=== PATIENT | female | born 1955 | race African-American/Black ===

== ENCOUNTER 2017-09-08 21:29 | Observation (INO) | payer MEDICARE, MEDICAID ==
[~2017-09-08] VITALS: Ht 167.6 cm; Wt 94.8 kg
[~2017-09-08 21:29] MED LIST: BENA40TA3; FERR325T23; GABA-531 PO; METH500T6 PO; NIFEDIPINE; PROMETHAZINE; PSEU60TA95; TRAM50TA3 PO; [UNRECOGNIZED DRUG - REMARK]
[2017-09-08] MEDS ORDERED: ASPIRIN 81MG TABLET PO ONE (22:15)
[2017-09-08] MEDS: NITROGLYCERIN 0.4MG TABLET SL SL PRN ×2 (22:22→22:27)
[2017-09-08 22:47] LABS: BASOPHILS % 0.2 % (0.0-2.0); EOSINOPHILS % 1.5 % (0.0-5.0); HEMATOCRIT. 36.6 % (36.0-48.0); HEMOGLOBIN. 12.4 g/dL (12.0-16.0); LYMPHOCYTES % 44.4 % (20.0-50.0); MEAN CORPUSCULAR HEMOGLOBIN 29.6 pg (28.0-32.0); MEAN CORPUSCULAR VOLUME 87.5 fL (81.0-99.0); MEAN PLATELET VOLUME 8.1 fl (7.4-10.4); MONOCYTES % 8.5 % (2.0-8.0); NEUTROPHILS % 45.4 % (40.0-76.0); PLATELET 178 x1000/uL (130-400); RED BLOOD CELL COUNT 4.18 mill/uL (4.2-5.4); RED CELL DISTRIBUTION WIDTH 14.7 % (11.6-14.6)
[2017-09-08 22:50] LABS: PROTHROMBIN TIME 10.7 sec (9.4-11.6)
[2017-09-08 22:58] LABS: CARBON DIOXIDE 27 mEq/L (21-32); CHLORIDE 105 mEq/L (98-107); TROPONIN I < 0.02 ng/mL (0.00-0.04)
[2017-09-08 23:56] LABS: *AMPHETAMINES SCREEN URINE NEGATIVE (NEGATIVE); *BARBITURATES SCREEN URINE NEGATIVE (NEGATIVE); *BENZODIAZEPINES SCREEN URINE NEGATIVE (NEGATIVE); *COCAINE SCREEN URINE NEGATIVE (NEGATIVE); CANNABINOID URINE SCREEN NEGATIVE (NEGATIVE); METHADONE URINE SCREEN NEGATIVE (NEGATIVE); OPIATES URINE SCREEN NEGATIVE (NEGATIVE); PHENCYCLIDINE URINE SCREEN NEGATIVE (NEGATIVE)
[2017-09-09] VITALS (8 sets, daily range): BP systolic 118–157; BP diastolic 82–102
[2017-09-09] MEDS ORDERED: VARE1TAB21 PO (03:27)
[2017-09-09] MEDS ORDERED: TRAZ150T79 PO (03:27)
[2017-09-09] MEDS ORDERED: HYDR-519 PO (03:27)
[2017-09-09] MEDS ORDERED: ATOR40TA70 PO (03:27)
[2017-09-09] MEDS ORDERED: MAGNESIUM/ALUMINUM HYDROXIDE/SIMETHICONE 30ML UDC PO PRN (04:15)
[2017-09-09] MEDS ORDERED: ONDANSETRON HCL 4MG/2ML VIAL IV PRN (04:15)
[2017-09-09] MEDS ORDERED: ACETAMINOPHEN 325MG TABLET PO PRN (04:15)
[2017-09-09] MEDS ORDERED: DIPHENHYDRAMINE 50MG/ML VIAL IV PRN (04:15)
[2017-09-09] MEDS ORDERED: CLONIDINE 0.1MG TABLET PO PRN (04:15)
[2017-09-09] MEDS: SODIUM CHLORIDE 0.9% INJ 3ML FLUSH IVF SCH ×3 (05:18→20:26)
[2017-09-09] MEDS: GABAPENTIN 300MG CAPSULE PO SCH ×3 (05:18→21:36)
[2017-09-09] MEDS ORDERED: BENAZEPRIL 20MG TABLET PO SCH (09:00)
[2017-09-09] MEDS: HYDROCODONE/ACETAMINOPHEN 10/325MG TABLET PO PRN ×2 (10:09→20:23)
[2017-09-09] MEDS ORDERED: POTASSIUM CHLORIDE 20MEQ TABLET SR PO NR (15:15)
[2017-09-09] MEDS ORDERED: IOHEXOL-350 100 ML BOTTLE ONE (16:33)
[2017-09-09] MEDS ORDERED: REGADENOSON 0.4 MG/5 ML IV NR (17:15)
[2017-09-09] MEDS: LOSARTAN POTASSIUM 25 MG TABLET PO SCH (18:21)
[2017-09-09] MEDS ORDERED: LACTULOSE 20G/30ML UDC PO NR (20:15)
[2017-09-09] MEDS: ATORVASTATIN CALCIUM 40MG TABLET PO SCH (20:22)
[2017-09-09] MEDS: TRAZODONE HCL 100MG TABLET PO SCH (20:22)
[2017-09-09] MEDS: GUAIFENESIN 200MG/10ML SUGAR FREE UDC PO PRN (21:35)
[2017-09-10] VITALS: BP 98/59
[2017-09-10 04:00] VITALS: BP 98/65
[2017-09-10] MEDS: GABAPENTIN 300MG CAPSULE PO SCH ×3 (06:06→21:53)
[2017-09-10] MEDS: SODIUM CHLORIDE 0.9% INJ 3ML FLUSH IVF SCH ×3 (06:06→21:53)
[2017-09-10 08:16] LABS: CARBON DIOXIDE 27 mEq/L (21-32); CHLORIDE 109 mEq/L (98-107); HDL CHOLESTEROL 39 mg/dL (40-59); LDL CHOLESTEROL 101 mg/dL (5-100)
[2017-09-10] MEDS ORDERED: REGADENOSON 0.4 MG/5 ML IV ONE (08:23)
[2017-09-10 08:36] LABS: TROPONIN I < 0.02 ng/mL (0.00-0.04)
[2017-09-10] MEDS: LOSARTAN POTASSIUM 25 MG TABLET PO SCH ×2 (09:10→20:17)
[2017-09-10] MEDS: HYDROCODONE/ACETAMINOPHEN 10/325MG TABLET PO PRN ×2 (13:11→20:23)
[2017-09-10] MEDS: LACTULOSE 20G/30ML UDC PO PRN (13:41)
[2017-09-10] MEDS ORDERED: SODIUM CHLORIDE 0.9% 10ML VIAL ONE (13:57)
[2017-09-10 20:00] VITALS: BP 132/80
[2017-09-10] MEDS: GUAIFENESIN 200MG/10ML SUGAR FREE UDC PO PRN (20:17)
[2017-09-10] MEDS: ATORVASTATIN CALCIUM 40MG TABLET PO SCH (20:17)
[2017-09-10] MEDS: TRAZODONE HCL 100MG TABLET PO SCH (21:53)
[2017-09-10 22:00] VITALS: BP 92/64
[2017-09-11] VITALS: BP 92/64
[2017-09-11 04:00] VITALS: BP 107/62
[2017-09-11] MEDS: GABAPENTIN 300MG CAPSULE PO SCH ×2 (06:16→14:02)
[2017-09-11] MEDS: SODIUM CHLORIDE 0.9% INJ 3ML FLUSH IVF SCH ×2 (06:19→14:01)
[2017-09-11] MEDS: LOSARTAN POTASSIUM 25 MG TABLET PO SCH (08:36)
[2017-09-11] MEDS: HYDROCODONE/ACETAMINOPHEN 10/325MG TABLET PO PRN (08:40)
[2017-09-11] MEDS ORDERED: IOHEXOL-300 100 ML BOTTLE ONE (11:19)
[2017-09-11 12:00] VITALS: BP 119/78
[2017-09-11] MEDS: LACTULOSE 20G/30ML UDC PO PRN (14:02)
[2017-09-11] MEDS ORDERED: PREDNISONE 20MG TABLET PO SCH (16:15)
[2017-09-11 16:52] VITALS: BP 119/78
[2017-09-11] MEDS ORDERED: MAGNESIUM CITRATE 300ML SOLUTION PO SCH (18:00)
== END 2017-09-11 17:30 | disposition home or self-care (01) ==
LOC: ER 22:38 → INTOOBSV 09-09 00:24 → 5WST 09-09 00:24 → EDBEDREQ 09-09 00:30
PROVIDERS: ADMIT Internal Medicine; ATTEND Internal Medicine
DX: R07.89 Other chest pain (principal); J42 Unspecified chronic bronchitis; I24.9 Acute ischemic heart disease, unspecified; I11.9 Hypertensive heart disease without heart failure; R22.1 Localized swelling, mass and lump, neck; E78.00 Pure hypercholesterolemia, unspecified; J45.909 Unspecified asthma, uncomplicated; D50.9 Iron deficiency anemia, unspecified; G62.9 Polyneuropathy, unspecified; I71.2 Thoracic aortic aneurysm, without rupture; M19.90 Unspecified osteoarthritis, unspecified site; F17.210 Nicotine dependence, cigarettes, uncomplicated; Z79.899 Other long term (current) drug therapy; M46.92 Unspecified inflammatory spondylopathy, cervical region
CPT/HCPCS: 36415; 70491; 71010; 71275; 78452; 80053; 80061; 80305; 83735; 83880; 84443; 84484; 85025; 85379; 85610; 93005; 93017; 93306; 99285; A4216; A9500; G0378; J2785; J7512; Q9967

== ENCOUNTER 2019-11-27 15:16 | Inpatient (IN) | payer MEDICARE, MEDICAID ==
[~2019-11-27] VITALS: Ht 167.6 cm; Wt 89.4 kg
[~2019-11-27 15:16] MED LIST changes: +ATOR40TA70 PO; -BENA40TA3; +BENA40TA9; +HYDR-519 PO; +TRAZ150T79 PO; +VARE1TAB21 PO
[2019-11-27] MEDS ORDERED: ONDANSETRON HCL 4MG/2ML INJ IV STA (16:21)
[2019-11-27] MEDS ORDERED: MORPHINE SULFATE 4 MG/ML CPJ (NOT FOR IM USE) IV STA (16:21)
[2019-11-27] MEDS ORDERED: SODIUM CHLORIDE 0.9% 1000ML BAG (SEPSIS BOLUS) IV ONE (16:30)
[2019-11-27 16:58] LABS: BASOPHILS % 0.4 % (0.0-2.0); EOSINOPHILS % 0.1 % (0.0-5.0); HEMATOCRIT. 45.1 % (36.0-48.0); HEMOGLOBIN. 15.1 g/dL (12.0-16.0); MEAN CORPUSCULAR HEMOGLOBIN 30.7 pg (28.0-32.0); MEAN CORPUSCULAR VOLUME 91.9 fL (81.0-99.0); MONOCYTES % 5.7 % (2.0-8.0); NEUTROPHILS % 67.8 % (40.0-76.0); PLATELET 298 x1000/uL (130-400); RED CELL DISTRIBUTION WIDTH 15.1 % (11.6-14.6)
[2019-11-27 17:06] LABS: CHLORIDE 105 mEq/L (98-107)
[2019-11-27 17:07] LABS: PARTIAL THROMBOPLASTIN TIME 26.2 sec (23.4-31.0); PROTHROMBIN TIME 10.3 sec (9.6-11.0)
[2019-11-27] MEDS ORDERED: POTASSIUM CHLORIDE 20MEQ TABLET SR PO ONE (18:45)
[2019-11-27] MEDS ORDERED: MORPHINE SULFATE 4 MG/ML CPJ (NOT FOR IM USE) IV ONE (19:00)
[2019-11-27 19:05] LABS: CLARITY URINE CLEAR (CLEAR); COLOR URINE YELLOW (YELLOW); KETONES URINE NEGATIVE (NEGATIVE); LEUKOCYTE ESTERASE URINE NEGATIVE (NEGATIVE); NITRITE URINE NEGATIVE (NEGATIVE); OCCULT BLOOD URINE NEGATIVE (NEGATIVE); PH URINE 6.5 (4.5-8.0); PROTEIN URINE 1+ (NEGATIVE); SPECIFIC GRAVITY URINE 1.025 (1.005-1.030)
[2019-11-27 22:00] VITALS: BP 156/82
[2019-11-27] MEDS ORDERED: CLONIDINE 0.1MG TABLET PO PRN (22:45)
[2019-11-27] MEDS ORDERED: IPRATROPIUM/ALBUTEROL 0.5-3(2.5)MG/3ML NEB HHN PRN (22:45)
[2019-11-27] MEDS ORDERED: TRAZODONE HCL 50MG TABLET PO NR (23:00)
[2019-11-27] MEDS: HYDROMORPHONE HCL/PF 2MG/ML CPJ IV PRN (23:05)
[2019-11-28 00:07] VITALS: BP 154/82
[2019-11-28 02:00] VITALS: BP 148/90
[2019-11-28] MEDS: HYDROMORPHONE HCL/PF 2MG/ML CPJ IV PRN ×6 (03:01→20:30)
[2019-11-28 07:21] LABS: BASOPHILS % 0.3 % (0.0-2.0); EOSINOPHILS % 0.2 % (0.0-5.0); HEMATOCRIT. 40.7 % (36.0-48.0); HEMOGLOBIN. 13.1 g/dL (12.0-16.0); LYMPHOCYTES % 29.8 % (20.0-50.0); MEAN CORPUSCULAR VOLUME 93.2 fL (81.0-99.0); MEAN PLATELET VOLUME 8.6 fl (7.4-10.4); MONOCYTES % 7.4 % (2.0-8.0); NEUTROPHILS % 62.3 % (40.0-76.0); PLATELET 262 x1000/uL (130-400); RED BLOOD CELL COUNT 4.36 mill/uL (4.2-5.4)
[2019-11-28 08:00] VITALS: BP 149/83
[2019-11-28 08:32] LABS: CHLORIDE 110 mEq/L (98-107)
[2019-11-28 08:41] LABS: LDL CHOLESTEROL 109 mg/dL (5-100)
[2019-11-28 08:44] LABS: HDL CHOLESTEROL 54 mg/dL (40-59)
[2019-11-28] MEDS: AMLODIPINE 5MG TABLET PO SCH ×2 (09:13→20:29)
[2019-11-28 12:00] VITALS: BP 139/72
[2019-11-28] MEDS: DEXAMETHASONE 4MG/ML 1ML VIAL IV SCH ×3 (14:25→23:33)
[2019-11-28 16:00] VITALS: BP 146/88
[2019-11-28] MEDS ORDERED: HYDROCODONE/ACETAMINOPHEN 10/325MG TABLET PO PRN (16:45)
[2019-11-28 20:19] VITALS: BP 145/88
[2019-11-28] MEDS: TRAZODONE HCL 50MG TABLET PO SCH (20:29)
[2019-11-29] VITALS (7 sets, daily range): BP systolic 117–197; BP diastolic 72–103
[2019-11-29] MEDS: HYDROMORPHONE HCL/PF 2MG/ML CPJ IV PRN ×5 (00:51→20:26)
[2019-11-29] MEDS: DEXAMETHASONE 4MG/ML 1ML VIAL IV SCH ×3 (05:04→18:19)
[2019-11-29] MEDS: AMLODIPINE 5MG TABLET PO SCH ×2 (09:41→20:26)
[2019-11-29] MEDS: OXYCODONE HCL 5MG TABLET PO PRN (18:19)
[2019-11-29] MEDS: TRAZODONE HCL 50MG TABLET PO SCH (20:26)
[2019-11-30] VITALS: BP_SYST 150; BP_SYST 162; BP_DIAS 95; BP_DIAS 96
[2019-11-30] MEDS: DEXAMETHASONE 4MG/ML 1ML VIAL IV SCH ×5 (00:10→23:54)
[2019-11-30] MEDS: OXYCODONE HCL 5MG TABLET PO PRN ×3 (00:11→15:13)
[2019-11-30] MEDS: HYDROMORPHONE HCL/PF 2MG/ML CPJ IV PRN ×5 (01:01→22:37)
[2019-11-30 04:00] VITALS: BP 144/90
[2019-11-30 05:15] LABS: BASOPHILS % 0.2 % (0.0-2.0); HEMATOCRIT. 41.6 % (36.0-48.0); HEMOGLOBIN. 13.8 g/dL (12.0-16.0); LYMPHOCYTES % 11.2 % (20.0-50.0); MEAN CORPUSCULAR HEMOGLOBIN 30.5 pg (28.0-32.0); MEAN CORPUSCULAR VOLUME 91.8 fL (81.0-99.0); MEAN PLATELET VOLUME 8.7 fl (7.4-10.4); MONOCYTES % 1.1 % (2.0-8.0); NEUTROPHILS % 87.5 % (40.0-76.0); PLATELET 268 x1000/uL (130-400); RED BLOOD CELL COUNT 4.53 mill/uL (4.2-5.4); RED CELL DISTRIBUTION WIDTH 15.1 % (11.6-14.6)
[2019-11-30 06:37] LABS: CHLORIDE 105 mEq/L (98-107)
[2019-11-30 08:00] VITALS: BP 131/79
[2019-11-30] MEDS: AMLODIPINE 5MG TABLET PO SCH ×2 (08:29→21:51)
[2019-11-30 12:00] VITALS: BP 139/80
[2019-11-30] MEDS ORDERED: LACTULOSE 20G/30ML UDC PO PRN (15:00)
[2019-11-30] MEDS ORDERED: GUAIFENESIN 200MG/10ML SUGAR FREE UDC PO PRN (15:00)
[2019-11-30] MEDS ORDERED: HYDRALAZINE 20MG/ML VIAL IV PRN (15:00)
[2019-11-30] MEDS ORDERED: LORAZEPAM 2MG/ML CPJ IV PRN (15:00)
[2019-11-30] MEDS ORDERED: ACETAMINOPHEN 650MG SUPP PR PRN (15:00)
[2019-11-30] MEDS ORDERED: ACETAMINOPHEN 325MG TABLET PO PRN (15:00)
[2019-11-30] MEDS ORDERED: ENOXAPARIN 40MG/0.4ML SYR SUBCUT SCH (17:30)
[2019-11-30] MEDS: DOCUSATE SODIUM 100MG CAPSULE PO SCH (19:00)
[2019-11-30 20:00] VITALS: BP 135/78
[2019-11-30] MEDS: TRAZODONE HCL 50MG TABLET PO SCH (21:51)
[2019-12-01] VITALS: BP 132/83
[2019-12-01 04:00] VITALS: BP 144/83
[2019-12-01] MEDS: DEXAMETHASONE 4MG/ML 1ML VIAL IV SCH ×2 (06:36→12:03)
[2019-12-01 08:00] VITALS: BP 136/93
[2019-12-01] MEDS: AMLODIPINE 5MG TABLET PO SCH ×2 (09:27→20:22)
[2019-12-01] MEDS: DOCUSATE SODIUM 100MG CAPSULE PO SCH ×2 (09:27→18:32)
[2019-12-01] MEDS: HYDROMORPHONE HCL/PF 2MG/ML CPJ IV PRN ×3 (09:32→18:32)
[2019-12-01 12:00] VITALS: BP 136/93
[2019-12-01 16:00] VITALS: BP 129/66
[2019-12-01] MEDS: DEXT 5%/0.45% NACL 1000ML 1,000 ML IV SCH (18:31)
[2019-12-01] MEDS: DIPHENHYDRAMINE 50MG/ML VIAL IV PRN (19:36)
[2019-12-01 20:22] VITALS: BP 145/76
[2019-12-01] MEDS: TRAZODONE HCL 50MG TABLET PO SCH (20:22)
[2019-12-01] MEDS: OXYCODONE HCL 5MG TABLET PO PRN (20:22)
[2019-12-02] VITALS: BP 135/74
[2019-12-02] MEDS: OXYCODONE HCL 5MG TABLET PO PRN (03:02)
[2019-12-02 04:00] VITALS: BP 133/85
[2019-12-02] MEDS: HYDROMORPHONE HCL/PF 2MG/ML CPJ IV PRN ×5 (05:25→14:07)
[2019-12-02] MEDS: DEXT 5%/0.45% NACL 1000ML 1,000 ML IV SCH ×2 (05:26→20:43)
[2019-12-02 06:37] LABS: BASOPHILS % 0.1 % (0.0-2.0); HEMATOCRIT. 43.1 % (36.0-48.0); MEAN CORPUSCULAR HEMOGLOBIN 29.9 pg (28.0-32.0); MEAN CORPUSCULAR VOLUME 92.2 fL (81.0-99.0); MEAN PLATELET VOLUME 8.5 fl (7.4-10.4); MONOCYTES % 9.4 % (2.0-8.0); NEUTROPHILS % 67.5 % (40.0-76.0); PLATELET 265 x1000/uL (130-400); RED BLOOD CELL COUNT 4.67 mill/uL (4.2-5.4)
[2019-12-02 06:55] LABS: CHLORIDE 106 mEq/L (98-107)
[2019-12-02 08:00] VITALS: BP 122/74
[2019-12-02] MEDS ORDERED: LIDOCAINE HCL/EPINEPHRINE 1%-EPI 1:100,000 20 ML VIAL ONE (08:44)
[2019-12-02] MEDS ORDERED: NORMAL SALINE 0.9% 10 ML SYR ONE (08:44)
[2019-12-02] MEDS ORDERED: THROMBIN (BOVINE) 5000 UNITS/VIAL TOP ONE ×2 (08:44→08:45)
[2019-12-02] MEDS ORDERED: BACITRACIN 50,000 UNITS/VIAL ONE (08:45)
[2019-12-02] MEDS: AMLODIPINE 5MG TABLET PO SCH ×2 (09:00→20:43)
[2019-12-02] MEDS: DOCUSATE SODIUM 100MG CAPSULE PO SCH ×2 (09:00→16:53)
[2019-12-02] MEDS ORDERED: FENTANYL CITRATE/PF 50MCG/ML 2ML VIAL ONE ×2 (10:50→12:05)
[2019-12-02] MEDS ORDERED: NEOSTIGMINE METHYLSULFATE 1MG/ML 10 ML VIAL ONE (10:50)
[2019-12-02] MEDS ORDERED: MIDAZOLAM HCL 2 MG/2 ML VIAL ONE (10:50)
[2019-12-02] MEDS ORDERED: PROPOFOL 200MG/20ML VIAL IV ONE ×2 (10:50→12:43)
[2019-12-02] MEDS ORDERED: GLYCOPYRROLATE 0.2 MG/ML 2ML VIAL ONE (10:51)
[2019-12-02] MEDS ORDERED: ONDANSETRON HCL 4MG/2ML INJ ONE (11:01)
[2019-12-02] MEDS ORDERED: DEXAMETHASONE 4MG/ML 1ML VIAL ONE (11:01)
[2019-12-02] MEDS ORDERED: ROCURONIUM BROMIDE 10MG/ML VIAL 5ML IV ONE (11:40)
[2019-12-02] MEDS ORDERED: HYDROMORPHONE HCL/PF 2MG/ML (OR) ONE (12:57)
[2019-12-02] MEDS ORDERED: ONDANSETRON HCL 4MG/2ML INJ IV PRN (13:15)
[2019-12-02] MEDS ORDERED: LABETALOL 5MG/ML SYR 20 MG/4 ML SYRINGE IV PRN (13:15)
[2019-12-02] MEDS ORDERED: CEFAZOLIN SODIUM 1000MG/VIAL IV SCH (14:00)
[2019-12-02] MEDS: MEPERIDINE HCL/PF 25MG/ML CPJ IV PRN ×2 (14:13→14:31)
[2019-12-02] MEDS ORDERED: HYDROMORPHONE HCL/PF 2MG/ML CPJ IV PRN (14:45)
[2019-12-02] MEDS ORDERED: HYDRALAZINE HCL 10MG TABLET PO PRN (15:00)
[2019-12-02] MEDS ORDERED: HYDRALAZINE 20MG/ML VIAL IV PRN (15:15)
[2019-12-02] MEDS ORDERED: HYDROMORPHONE PCA 10MG/50ML IV PRN (15:53)
[2019-12-02] MEDS ORDERED: NALOXONE INJ IV PRN (15:54)
[2019-12-02] MEDS ORDERED: ONDANSETRON INJ IV PRN (15:54)
[2019-12-02] MEDS ORDERED: DIPHENHYDRAMINE INJ IV PRN (15:54)
[2019-12-02 16:59] LABS: BG BASE EXCESS 0.3 mmol/L (-2.0-2.0); BG CARBOXYHEMOGLOBIN 0.9 % (0.5-1.5); BG DEOXYHEMOGLOBIN 6.6 % (0.0-5.0); BG FRACTION INSPIRED OXYGEN 28; BG HCO3 ACT 27.2 mmol/L (22.0-26.0); BG METHEMOGLOBIN 0.4 % (0.0-1.5); BG OXYGEN SATURATION 93.3 % (92.0-98.5); BG OXYHEMOGLOBIN 92.1 % (94.0-97.0); BG PCO2 52.2 mmHg (35.0-45.0); BG PH 7.334 (7.350-7.450); BG PO2 73.8 mmHg (75.0-100.0); BG SAMPLE SITE RIGHT BRACHIAL; BG TOTAL HEMOGLOBIN 15.2 g/dL (12.0-18.0); BG VENT MODE NASAL CANNULA
[2019-12-02 20:00] VITALS: BP 106/65
[2019-12-02] MEDS: CEFAZOLIN 1000MG PREMIX 50 ML IV SCH (20:42)
[2019-12-02] MEDS: TRAZODONE HCL 50MG TABLET PO SCH (20:43)
[2019-12-02] MEDS: DIPHENHYDRAMINE 50MG/ML VIAL IV PRN (21:05)
[2019-12-02] MEDS: IPRATROPIUM/ALBUTEROL 0.5-3(2.5)MG/3ML NEB HHN SCH (21:20)
[2019-12-03] VITALS: BP 114/55
[2019-12-03] MEDS: IPRATROPIUM/ALBUTEROL 0.5-3(2.5)MG/3ML NEB HHN SCH ×4 (01:22→21:21)
[2019-12-03 04:00] VITALS: BP 134/68
[2019-12-03] MEDS: CEFAZOLIN 1000MG PREMIX 50 ML IV SCH (05:47)
[2019-12-03 06:33] LABS: HEMATOCRIT 42.1 % (36.0-48.0); HEMOGLOBIN 13.3 g/dL (12.0-16.0); MEAN CORPUSCULAR HEMOGLOBIN 29.6 pg (28.0-32.0); MEAN CORPUSCULAR VOLUME 93.3 fL (81.0-99.0); PLATELET 236 x1000/uL (130-400); RED BLOOD CELL COUNT 4.51 mill/uL (4.2-5.4)
[2019-12-03 07:52] LABS: CHLORIDE 104 mEq/L (98-107)
[2019-12-03 08:00] VITALS: BP 122/73
[2019-12-03] MEDS: AMLODIPINE 5MG TABLET PO SCH ×2 (09:08→21:17)
[2019-12-03] MEDS: DOCUSATE SODIUM 100MG CAPSULE PO SCH ×2 (09:08→16:39)
[2019-12-03] MEDS: DEXT 5%/0.45% NACL 1000ML 1,000 ML IV SCH (09:21)
[2019-12-03 12:00] VITALS: BP 107/67
[2019-12-03] MEDS ORDERED: HYDROCODONE/ACETAMINOPHEN 5/325MG TABLET PO PRN (15:30)
[2019-12-03 16:00] VITALS: BP 107/67
[2019-12-03] MEDS: HYDROMORPHONE HCL/PF 2MG/ML CPJ IV PRN ×2 (19:45→23:00)
[2019-12-03 20:00] VITALS: BP 129/70
[2019-12-03] MEDS: TRAZODONE HCL 50MG TABLET PO SCH (21:17)
[2019-12-04] VITALS: BP 122/63
[2019-12-04] MEDS: IPRATROPIUM/ALBUTEROL 0.5-3(2.5)MG/3ML NEB HHN SCH ×3 (01:30→14:00)
[2019-12-04] MEDS: HYDROMORPHONE HCL/PF 2MG/ML CPJ IV PRN ×5 (01:59→16:13)
[2019-12-04 04:00] VITALS: BP 149/90
[2019-12-04 08:00] VITALS: BP 143/76
[2019-12-04] MEDS ORDERED: OXYCODONE HCL/ACETAMINOPHEN 5/325MG TABLET PO PRN (09:15)
[2019-12-04] MEDS: DOCUSATE SODIUM 100MG CAPSULE PO SCH ×2 (09:31→16:18)
[2019-12-04] MEDS: AMLODIPINE 5MG TABLET PO SCH (09:31)
[2019-12-04] MEDS ORDERED: LOSARTAN POTASSIUM 50 MG TABLET PO SCH (10:00)
[2019-12-04 12:00] VITALS: BP 162/95
[2019-12-04 16:00] VITALS: BP 129/82
[2019-12-04 17:48] VITALS: BP 129/82
== END 2019-12-04 20:05 | DRG 519 ==
LOC: ER 15:16 → ENRESERV 19:44 → 7WST 20:14
PROVIDERS: ADMIT Internal Medicine; ATTEND Internal Medicine
PROC: 01NB0ZZ Release Lumbar Nerve, Open Approach (ICD-10-PCS; principal; 2019-12-02)
PROC: 01NR0ZZ Release Sacral Nerve, Open Approach (ICD-10-PCS; 2019-12-02)
PROC: 0SB20ZZ Excision of Lumbar Vertebral Disc, Open Approach (ICD-10-PCS; 2019-12-02)
PROC: 0SB40ZZ Excision of Lumbosacral Disc, Open Approach (ICD-10-PCS; 2019-12-02)
PROC: 4A11X4G Monitoring of Peripheral Nervous Electrical Activity, Intraoperative, External Approach (ICD-10-PCS; 2019-12-02)
DX: M51.16 Intervertebral disc disorders with radiculopathy, lumbar region (principal); F11.20 Opioid dependence, uncomplicated; M51.17 Intervertebral disc disorders with radiculopathy, lumbosacral region; M48.061 Spinal stenosis, lumbar region without neurogenic claudication; I10 Essential (primary) hypertension; M19.90 Unspecified osteoarthritis, unspecified site; F17.210 Nicotine dependence, cigarettes, uncomplicated; E78.5 Hyperlipidemia, unspecified; E87.6 Hypokalemia; G89.29 Other chronic pain; M48.02 Spinal stenosis, cervical region; Z86.69 Personal history of other diseases of the nervous system and sense organs; Z85.3 Personal history of malignant neoplasm of breast; Z90.710 Acquired absence of both cervix and uterus; Z98.891 History of uterine scar from previous surgery; Z79.899 Other long term (current) drug therapy
CPT/HCPCS: 36415; 36600; 71045; 72100; 72141; 72148; 76000; 80048; 80053; 80061; 81003; 82375; 82805; 83605; 83735; 83880; 84145; 84484; 85025; 85027; 88304; 88311; 93005; 93306; 93970; 94640; 95863; 95925; 95926; 95928; 95929; 97110; 97116; 97162; 97164; 97166; 97530; 97535; 99285; J0690; J1100; J1170; J1200; J1650; J2175; J2250; J2270; J2405; J2704; J2710; J3010; J3490; J7030; J7620

== ENCOUNTER 2019-12-04 18:15 | Inpatient (IN) | payer MEDICARE, MEDICAID ==
[~2019-12-04] VITALS: Ht 167.6 cm; Wt 90.7 kg
[2019-12-04 19:00] VITALS: BP 117/75
[2019-12-04 20:00] VITALS: BP 117/75
[2019-12-04] MEDS ORDERED: HYDRALAZINE 20MG/ML VIAL IV PRN (20:00)
[2019-12-04] MEDS ORDERED: LORAZEPAM 2MG/ML CPJ IV PRN (20:00)
[2019-12-04] MEDS ORDERED: ACETAMINOPHEN 650MG SUPP PR PRN (20:00)
[2019-12-04] MEDS ORDERED: DIPHENHYDRAMINE 50MG/ML VIAL IV PRN (20:00)
[2019-12-04] MEDS ORDERED: CLONIDINE 0.1MG TABLET PO PRN (20:00)
[2019-12-04] MEDS ORDERED: HYDRALAZINE HCL 10MG TABLET PO PRN (20:00)
[2019-12-04] MEDS ORDERED: IPRATROPIUM/ALBUTEROL 0.5-3(2.5)MG/3ML NEB HHN PRN (20:00)
[2019-12-04] MEDS ORDERED: GUAIFENESIN 200MG/10ML SUGAR FREE UDC PO PRN (20:00)
[2019-12-04] MEDS ORDERED: HYDRALAZINE 10 MG in SODIUM CHLORIDE 0.9% 49.5 ML IV PRN (20:45)
[2019-12-04] MEDS: TRAZODONE HCL 50MG TABLET PO SCH (21:56)
[2019-12-04] MEDS: AMLODIPINE 5MG TABLET PO SCH (21:56)
[2019-12-05] MEDS: HYDROMORPHONE HCL/PF 2MG/ML CPJ IV PRN ×5 (01:08→20:41)
[2019-12-05] MEDS: IPRATROPIUM/ALBUTEROL 0.5-3(2.5)MG/3ML NEB HHN SCH ×4 (01:10→22:30)
[2019-12-05 07:34] LABS: BASOPHILS % 0.1 % (0.0-2.0); EOSINOPHILS % 0.2 % (0.0-5.0); HEMATOCRIT. 41.4 % (36.0-48.0); HEMOGLOBIN. 13.3 g/dL (12.0-16.0); LYMPHOCYTES % 13.4 % (20.0-50.0); MEAN CORPUSCULAR HEMOGLOBIN 29.5 pg (28.0-32.0); MEAN PLATELET VOLUME 8.8 fl (7.4-10.4); MONOCYTES % 14.7 % (2.0-8.0); NEUTROPHILS % 71.6 % (40.0-76.0); PLATELET 201 x1000/uL (130-400); RED CELL DISTRIBUTION WIDTH 14.8 % (11.6-14.6)
[2019-12-05 08:08] VITALS: BP 107/65
[2019-12-05] MEDS: LOSARTAN POTASSIUM 50 MG TABLET PO SCH (08:11)
[2019-12-05] MEDS: AMLODIPINE 5MG TABLET PO SCH ×2 (08:11→20:55)
[2019-12-05] MEDS: DOCUSATE SODIUM 100MG CAPSULE PO SCH ×2 (08:21→17:33)
[2019-12-05] MEDS: ACETAMINOPHEN 325MG TABLET PO PRN (08:21)
[2019-12-05 08:31] LABS: CHLORIDE 100 mEq/L (98-107)
[2019-12-05] MEDS: OXYCODONE HCL/ACETAMINOPHEN 5/325MG TABLET PO PRN ×2 (11:17→17:34)
[2019-12-05] MEDS ORDERED: NA PHOS,M-B/NA PHOS,DI-BA ENEMA 118ML PR PRN (15:45)
[2019-12-05] MEDS: BISACODYL 5MG TABLET PO PRN (17:33)
[2019-12-05 20:00] VITALS: BP 105/61
[2019-12-05] MEDS: TRAZODONE HCL 50MG TABLET PO SCH (20:50)
[2019-12-06] MEDS: HYDROMORPHONE HCL/PF 2MG/ML CPJ IV PRN ×6 (00:20→21:36)
[2019-12-06] MEDS: IPRATROPIUM/ALBUTEROL 0.5-3(2.5)MG/3ML NEB HHN SCH ×4 (03:35→21:21)
[2019-12-06 03:36] LABS: CLARITY URINE CLEAR (CLEAR); COLOR URINE YELLOW (YELLOW); KETONES URINE NEGATIVE (NEGATIVE); LEUKOCYTE ESTERASE URINE TRACE (NEGATIVE); NITRITE URINE NEGATIVE (NEGATIVE); OCCULT BLOOD URINE 1+ (NEGATIVE); PROTEIN URINE NEGATIVE (NEGATIVE); SPECIFIC GRAVITY URINE 1.021 (1.005-1.030)
[2019-12-06 06:26] LABS: HEMATOCRIT 36.5 % (36.0-48.0); HEMOGLOBIN 11.9 g/dL (12.0-16.0); PLATELET 175 x1000/uL (130-400); RED BLOOD CELL COUNT 3.96 mill/uL (4.2-5.4); RED CELL DISTRIBUTION WIDTH 14.5 % (11.6-14.6)
[2019-12-06 06:32] LABS: CHLORIDE 100 mEq/L (98-107)
[2019-12-06] MEDS: OXYCODONE HCL/ACETAMINOPHEN 5/325MG TABLET PO PRN (06:36)
[2019-12-06 08:00] VITALS: BP 95/52
[2019-12-06] MEDS: AMLODIPINE 5MG TABLET PO SCH ×2 (08:00→21:00)
[2019-12-06] MEDS: LOSARTAN POTASSIUM 50 MG TABLET PO SCH (08:00)
[2019-12-06] MEDS: DOCUSATE SODIUM 100MG CAPSULE PO SCH ×2 (08:04→16:50)
[2019-12-06 20:00] VITALS: BP 126/85
[2019-12-06] MEDS: TRAZODONE HCL 50MG TABLET PO SCH (21:34)
[2019-12-07] MEDS: HYDROMORPHONE HCL/PF 2MG/ML CPJ IV PRN ×7 (00:43→22:32)
[2019-12-07] MEDS: BISACODYL 5MG TABLET PO PRN (06:37)
[2019-12-07] MEDS: IPRATROPIUM/ALBUTEROL 0.5-3(2.5)MG/3ML NEB HHN SCH ×3 (07:44→21:17)
[2019-12-07] MEDS: LOSARTAN POTASSIUM 50 MG TABLET PO SCH (07:52)
[2019-12-07] MEDS: AMLODIPINE 5MG TABLET PO SCH ×2 (07:52→21:00)
[2019-12-07 07:54] VITALS: BP 103/53
[2019-12-07] MEDS: DOCUSATE SODIUM 100MG CAPSULE PO SCH ×2 (08:55→16:15)
[2019-12-07] MEDS: OXYCODONE HCL/ACETAMINOPHEN 5/325MG TABLET PO PRN ×2 (11:54→20:47)
[2019-12-07] MEDS: LACTULOSE 20G/30ML UDC PO PRN (18:52)
[2019-12-07 20:00] VITALS: BP 154/81
[2019-12-07] MEDS: TRAZODONE HCL 50MG TABLET PO SCH (22:32)
[2019-12-08] MEDS: IPRATROPIUM/ALBUTEROL 0.5-3(2.5)MG/3ML NEB HHN SCH ×4 (01:34→20:50)
[2019-12-08] MEDS: HYDROMORPHONE HCL/PF 2MG/ML CPJ IV PRN ×5 (01:40→21:42)
[2019-12-08] MEDS: LACTULOSE 20G/30ML UDC PO PRN (06:42)
[2019-12-08 07:32] VITALS: BP 95/55
[2019-12-08] MEDS: AMLODIPINE 5MG TABLET PO SCH ×2 (08:20→21:43)
[2019-12-08] MEDS: LOSARTAN POTASSIUM 50 MG TABLET PO SCH (08:20)
[2019-12-08] MEDS: DOCUSATE SODIUM 100MG CAPSULE PO SCH ×2 (08:50→17:26)
[2019-12-08] MEDS: OXYCODONE HCL/ACETAMINOPHEN 5/325MG TABLET PO PRN ×2 (12:15→18:36)
[2019-12-08 15:12] VITALS: BP 133/86
[2019-12-08 20:00] VITALS: BP 123/73
[2019-12-08 21:15] VITALS: BP 123/75
[2019-12-08] MEDS: TRAZODONE HCL 50MG TABLET PO SCH (21:42)
[2019-12-08] MEDS: BISACODYL 5MG TABLET PO PRN (21:52)
[2019-12-08] MEDS: ACETAMINOPHEN 325MG TABLET PO PRN (21:52)
[2019-12-09] MEDS: OXYCODONE HCL/ACETAMINOPHEN 5/325MG TABLET PO PRN ×3 (00:31→19:01)
[2019-12-09] MEDS: IPRATROPIUM/ALBUTEROL 0.5-3(2.5)MG/3ML NEB HHN SCH ×4 (00:35→20:00)
[2019-12-09] MEDS: HYDROMORPHONE HCL/PF 2MG/ML CPJ IV PRN ×5 (02:50→20:29)
[2019-12-09 07:40] VITALS: BP 105/60
[2019-12-09] MEDS: DOCUSATE SODIUM 100MG CAPSULE PO SCH ×2 (08:44→16:26)
[2019-12-09] MEDS: AMLODIPINE 5MG TABLET PO SCH ×2 (08:45→20:30)
[2019-12-09] MEDS: LOSARTAN POTASSIUM 50 MG TABLET PO SCH (08:46)
[2019-12-09 12:11] VITALS: BP 116/71
[2019-12-09 15:43] VITALS: BP 159/91
[2019-12-09 16:24] VITALS: BP 136/80
[2019-12-09 20:00] VITALS: BP 148/90
[2019-12-09] MEDS: ACETAMINOPHEN 325MG TABLET PO PRN (20:31)
[2019-12-09] MEDS: LACTULOSE 20G/30ML UDC PO PRN (20:38)
[2019-12-09] MEDS: TRAZODONE HCL 50MG TABLET PO SCH (20:41)
[2019-12-10] MEDS: OXYCODONE HCL/ACETAMINOPHEN 5/325MG TABLET PO PRN ×5 (04:38→17:03)
[2019-12-10] MEDS: IPRATROPIUM/ALBUTEROL 0.5-3(2.5)MG/3ML NEB HHN SCH ×2 (07:46→14:14)
[2019-12-10 07:58] VITALS: BP 133/75
[2019-12-10] MEDS: AMLODIPINE 5MG TABLET PO SCH (08:39)
[2019-12-10] MEDS: LOSARTAN POTASSIUM 50 MG TABLET PO SCH (08:40)
[2019-12-10] MEDS: DOCUSATE SODIUM 100MG CAPSULE PO SCH ×2 (08:40→17:03)
[2019-12-10 17:47] VITALS: BP 142/83
== END 2019-12-10 18:00 | disposition home health service (06) | DRG 552 ==
PROVIDERS: ADMIT Psychiatry & Neurology Neurology; ATTEND Internal Medicine
DX: M51.17 Intervertebral disc disorders with radiculopathy, lumbosacral region (principal); F11.20 Opioid dependence, uncomplicated; G89.29 Other chronic pain; M47.816 Spondylosis without myelopathy or radiculopathy, lumbar region; M48.061 Spinal stenosis, lumbar region without neurogenic claudication; I10 Essential (primary) hypertension; F17.210 Nicotine dependence, cigarettes, uncomplicated; M51.26 Other intervertebral disc displacement, lumbar region; D72.829 Elevated white blood cell count, unspecified; Z85.3 Personal history of malignant neoplasm of breast
CPT/HCPCS: 36415; 80048; 81003; 83735; 85025; 85027; 94640; 97110; 97116; 97162; 97166; 97530; 97535; J1170; J7620

== ENCOUNTER 2025-03-01 19:07 | Emergency (ER) | payer MEDICARE, MEDICAID ==
[~2025-03-01] VITALS: Ht 177.8 cm; Wt 70.0 kg
[~2025-03-01 19:07] MED LIST changes: +ATOR-388 MT; -BENA40TA9; +BENA40TA91; +DILT180C66 MT; +FAMO-135 MT; +FURO-152 MT; +GABA-1180 PO; -GABA-531 PO; +METH-773 PO; -METH500T6 PO; -NIFEDIPINE; +PREN-55 MT; -PROMETHAZINE; +PROT40 MT; -[UNRECOGNIZED DRUG - REMARK]
[2025-03-01 19:15] VITALS: BP 106/74; PULSE 83; RESP 18; TEMP 37; O2SAT 99
== END 2025-03-01 20:45 | disposition home or self-care (01) ==
LOC: ER 19:07
DX: F10.129 Alcohol abuse with intoxication, unspecified (principal); J44.9 Chronic obstructive pulmonary disease, unspecified; E11.9 Type 2 diabetes mellitus without complications; I10 Essential (primary) hypertension; Z98.890 Other specified postprocedural states; Z79.899 Other long term (current) drug therapy; Z88.5 Allergy status to narcotic agent; Y90.9 Presence of alcohol in blood, level not specified
CPT/HCPCS: 99283